=== PATIENT | female | born 1980 | race Caucasian/White ===

== ENCOUNTER 2016-04-08 14:22 | Emergency (ER) | payer BC ==
[~2016-04-08] VITALS: Ht 170.2 cm; Wt 73.3 kg
[2016-04-08 15:28] LABS: HEMATOCRIT 43.1 % (36.0-46.0); MCH 30.6 PG (29.0-34.0); MCHC 33.4 G/DL (30.0-36.0); MCV 91.7 FL (83-99); MEAN PLAT.VOLUME 11.5 uM^3 (9.5-12.4); PLATELET COUNT 178 K/uL (156-360); RBC DIS.WIDTH-CV 12.7 % (11.8-14.6); RBC DIS.WIDTH-SD 41.2 % (39-53); WHITE BLOOD COUNT 11.2 K/uL (4.1-10.2)
[2016-04-08 15:40] LABS: CHLORIDE 107 mEq/L (99-109); SODIUM 139 mEq/L (136-147)
[2016-04-08 15:42] LABS: GLUCOSE 84 mg/dL (70-99)
[2016-04-08 15:43] LABS: ANION GAP 10 MEQ/L (2-14)
[2016-04-08 15:46] LABS: ALKALINE PHOSPHATASE 70 IU/L (3-129)
[2016-04-08 15:47] LABS: UREA NITROGEN (BUN) 9 mg/dL (9-23)
[2016-04-08 15:52] LABS: GFR ESTIMATE (CALCULATED) > 59 mL/min/
[2016-04-08 15:54] LABS: QUANTITATIVE HCG < 4.0 MIU/ML
[2016-04-08] MEDS ORDERED: LITHIUM CARBON300 M1 PO (17:00)
[2016-04-08 17:12] LABS: ADD MIUA? YES; BILIRUBIN NEGATIVE; BLOOD NEGATIVE; COLOR YELLOW ((YELLOW)); GLUCOSE (STRIP) NEGATIVE; KETONES 20; LEUKOCYTES NEGATIVE; NITRITE NEGATIVE; PROTEIN (STRIP) 30; SPECIFIC GRAVITY 1.017 (1.000-1.030)
[2016-04-08 17:22] LABS: BACTERIA NONE SEEN /HPF; EPITHELIAL CELLS 2+ /HPF; MUCUS 1+ /LPF; RED BLOOD CELLS 0-5 /HPF (0-5); UCUL ADDED? NO; WHITE BLOOD CELLS 0-5 /HPF (0-5)
[2016-04-08] MEDS ORDERED: ZOFRAN ODT4 MG PO (17:53)
[2016-04-08] MEDS ORDERED: BENTYL20 MG PO (17:53)
[2016-04-08 18:02] VITALS: BP 123/79
== END 2016-04-08 18:06 | disposition home or self-care (01) ==
LOC: EME 14:22
DX: R10.30 Lower abdominal pain, unspecified (principal); R19.7 Diarrhea, unspecified; B34.9 Viral infection, unspecified; R11.2 Nausea with vomiting, unspecified; F17.200 Nicotine dependence, unspecified, uncomplicated; Z71.6 Tobacco abuse counseling
CPT/HCPCS: 80053; 81003; 84702; 85027; 99281; 99284

== ENCOUNTER 2017-02-28 09:11 | Emergency (ER) | payer BC ==
[~2017-02-28] VITALS: Ht 170.2 cm; Wt 71.6 kg
[~2017-02-28 09:11] MED LIST: BENTYL20 MG PO; LITHIUM CARBON300 M1 PO; ZOFRAN ODT4 MG PO
[2017-02-28 09:56] LABS: APPEARANCE CLOUDY ((CLEAR)); BILIRUBIN NEGATIVE; BLOOD SMALL; COLOR YELLOW ((YELLOW)); GLUCOSE (STRIP) NEGATIVE; KETONES NEGATIVE; LEUKOCYTES NEGATIVE; NITRITE NEGATIVE; PROTEIN (STRIP) NEGATIVE; SPECIFIC GRAVITY 1.008 (1.000-1.030); UROBILINOGEN 0.2 MG/DL (0.2-1.0)
[2017-02-28 10:16] LABS: BACTERIA 1+ /HPF; EPITHELIAL CELLS 2+ /HPF; MUCUS 1+ /LPF; RED BLOOD CELLS 0-5 /HPF (0-5); UCUL ADDED? NO; WHITE BLOOD CELLS 0-5 /HPF (0-5)
[2017-02-28 10:20] LABS: HEMATOCRIT 43.4 % (36.0-46.0); HEMOGLOBIN 14.4 G/DL (11.9-15.5); MCH 31.5 PG (29.0-34.0); MCHC 33.2 G/DL (30.0-36.0); PLATELET COUNT 211 K/uL (156-360); RBC DIS.WIDTH-SD 45.7 % (39-53); RED BLOOD COUNT 4.57 M/uL (3.80-5.20); WHITE BLOOD COUNT 11.1 K/uL (4.1-10.2)
[2017-02-28 10:36] LABS: ALBUMIN 4.5 g/dL (3.2-4.8); CHLORIDE 106 mEq/L (99-109); POTASSIUM 4.2 mEq/L (3.7-5.4); SODIUM 139 mEq/L (136-147)
[2017-02-28 10:38] LABS: GLUCOSE 99 mg/dL (70-99); TOTAL PROTEIN 6.9 g/dL (6.4-8.3)
[2017-02-28 10:40] LABS: TOTAL BILIRUBIN 2.2 mg/dL (0.0-1.0)
[2017-02-28 10:42] LABS: ALKALINE PHOSPHATASE 67 IU/L (3-129); CREATININE 0.7 mg/dL (0.6-1.3); GFR ESTIMATE (CALCULATED) > 59 mL/min/
[2017-02-28 10:43] LABS: UREA NITROGEN (BUN) 10 mg/dL (9-23)
[2017-02-28 10:44] LABS: AST (GOT) 21 IU/L (2-34)
[2017-02-28 10:45] LABS: ALT (GPT) 17 IU/L (3-49)
[2017-02-28 10:52] LABS: QUANTITATIVE HCG < 4.0 MIU/ML
[2017-02-28] MEDS ORDERED: PERCOCET 2.51 TABLET PO (16:52)
[2017-02-28] MEDS ORDERED: ZOFRAN ODT4 MG PO (16:52)
[2017-02-28 17:11] VITALS: BP 138/79
== END 2017-02-28 18:00 | disposition home or self-care (01) ==
LOC: EME 09:11
DX: R10.31 Right lower quadrant pain (principal); R10.2 Pelvic and perineal pain; R11.0 Nausea; R30.0 Dysuria; F31.9 Bipolar disorder, unspecified; F17.200 Nicotine dependence, unspecified, uncomplicated; Z88.0 Allergy status to penicillin
CPT/HCPCS: 74176; 76856; 80053; 81003; 84702; 85027; 99281; 99284; J1885; J2270; J2405

== ENCOUNTER 2017-03-24 09:17 | Inpatient (IN) | payer BC ==
[~2017-03-24] VITALS: Ht 170.2 cm; Wt 68.9 kg
[~2017-03-24 09:17] MED LIST changes: +ODOR FREE GARL1 EACH PO; +PERCOCET 2.51 TABLET PO; +PROBIOTIC1 EAC3 PO; +VITAMIN D31000 UNI2 PO
[2017-03-24 09:46] LABS: HEMATOCRIT 42.7 % (36.0-46.0); HEMOGLOBIN 14.4 G/DL (11.9-15.5); MCV 95.1 FL (83-99)
[2017-03-24 10:02] VITALS: BP 121/65
[2017-03-24 17:38] VITALS: BP 121/62
[2017-03-24 19:36] VITALS: BP 105/58
[2017-03-24 23:29] VITALS: BP 122/59
[2017-03-25 03:21] VITALS: BP 102/53
[2017-03-25 07:02] VITALS: BP 104/53
[2017-03-25 07:04] LABS: BASOPHIL (%) 0.2 % (0-1); EOSINOPHIL (%) 0.1 % (0-5); HEMATOCRIT 29.5 % (36.0-46.0); IMMATURE GRANULOCYTE (%) 0.8 % (0.0-0.7); LYMPHOCYTE (%) 15.8 % (15-42); LYMPHOCYTE COUNT 2.8 K/uL (1.0-2.8); MCH 30.5 PG (29.0-34.0); MCHC 31.9 G/DL (30.0-36.0); MCV 95.8 FL (83-99); MONOCYTE (%) 9.7 % (3-12); MONOCYTE COUNT 1.7 K/uL (0-0.8); NEUTROPHIL (%) 73.4 % (45-76); NEUTROPHIL COUNT 12.8 K/uL (1.8-6.4); PLATELET COUNT 222 K/uL (156-360); RBC DIS.WIDTH-CV 12.8 % (11.8-14.6); RBC DIS.WIDTH-SD 44.8 % (39-53); WHITE BLOOD COUNT 17.5 K/uL (4.1-10.2)
[2017-03-25 07:06] LABS: HEMOGLOBIN 9.4 G/DL (11.9-15.5); RED BLOOD COUNT 3.08 M/uL (3.80-5.20)
[2017-03-25 12:33] VITALS: BP 120/71
[2017-03-25] MEDS ORDERED: ENDOCET 5-3251 EACH PO (13:53)
[2017-03-25] MEDS ORDERED: MOTRIN800 MG PO (13:53)
[2017-03-25 15:15] VITALS: BP 109/54
[2017-03-25 16:09] VITALS: BP 117/58
[2017-03-25 18:00] LABS: INTER. NORMALIZED RATIO 1.1
[2017-03-25 18:02] LABS: BASOPHIL (%) 0.2 % (0-1); EOSINOPHIL (%) 0.6 % (0-5); EOSINOPHIL COUNT 0.1 K/uL (0-0.3); HEMATOCRIT 23.2 % (36.0-46.0); HEMOGLOBIN 7.7 G/DL (11.9-15.5); IMMATURE GRANULOCYTE (%) 0.6 % (0.0-0.7); LYMPHOCYTE (%) 22.8 % (15-42); LYMPHOCYTE COUNT 2.9 K/uL (1.0-2.8); MCH 31.3 PG (29.0-34.0); MCHC 33.2 G/DL (30.0-36.0); MCV 94.3 FL (83-99); MONOCYTE COUNT 1.5 K/uL (0-0.8); NEUTROPHIL (%) 63.8 % (45-76); NRBC (%) 0.3 /100 WBC (0-0); PLATELET COUNT 166 K/uL (156-360); RBC DIS.WIDTH-CV 12.6 % (11.8-14.6); RBC DIS.WIDTH-SD 43.6 % (39-53); WHITE BLOOD COUNT 12.5 K/uL (4.1-10.2)
[2017-03-25 18:03] LABS: PTT 24.6 SEC (25-37); RED BLOOD COUNT 2.46 M/uL (3.80-5.20)
[2017-03-25 20:06] VITALS: BP 117/57
[2017-03-25 20:16] LABS: HEMOGLOBIN 7.4 G/DL (11.9-15.5); MCH 31.8 PG (29.0-34.0); MCHC 33.6 G/DL (30.0-36.0); MCV 94.4 FL (83-99); PLATELET COUNT 145 K/uL (156-360); RBC DIS.WIDTH-CV 12.8 % (11.8-14.6); RED BLOOD COUNT 2.33 M/uL (3.80-5.20); WHITE BLOOD COUNT 11.4 K/uL (4.1-10.2)
[2017-03-26] VITALS (8 sets, daily range): BP systolic 109–123; BP diastolic 55–62
[2017-03-26 06:49] LABS: HEMATOCRIT 20.9 % (36.0-46.0); MCH 32.1 PG (29.0-34.0); MCHC 33.5 G/DL (30.0-36.0); MCV 95.9 FL (83-99); PLATELET COUNT 144 K/uL (156-360); RBC DIS.WIDTH-SD 45.8 % (39-53); RED BLOOD COUNT 2.18 M/uL (3.80-5.20); WHITE BLOOD COUNT 10.4 K/uL (4.1-10.2)
[2017-03-26 08:19] LABS: FIBRINOGEN 354 mg/dL (150-450); INTER. NORMALIZED RATIO 1.1
[2017-03-26 08:21] LABS: PTT 25.4 SEC (25-37)
[2017-03-26 17:57] LABS: CHLORIDE 109 MEQ/L (99-109); POTASSIUM 4.1 MEQ/L (3.7-5.4); SODIUM 140 MEQ/L (136-147)
[2017-03-26 18:02] LABS: CREATININE 0.5 MG/DL (0.6-1.3); GFR ESTIMATE (CALCULATED) > 59 mL/min/; GLUCOSE 111 mg/dL (70-99); UREA NITROGEN (BUN) 7 mg/dL (9-23)
[2017-03-26 20:41] LABS: BASOPHIL (%) 0.1 % (0-1); EOSINOPHIL (%) 0 % (0-5); HEMATOCRIT 25.5 % (36.0-46.0); HEMOGLOBIN 8.5 G/DL (11.9-15.5); IMMATURE GRANULOCYTE (%) 0.6 % (0.0-0.7); LYMPHOCYTE (%) 4.8 % (15-42); LYMPHOCYTE COUNT 0.5 K/uL (1.0-2.8); MCH 30.6 PG (29.0-34.0); MCHC 33.3 G/DL (30.0-36.0); MONOCYTE (%) 5.5 % (3-12); MONOCYTE COUNT 0.6 K/uL (0-0.8); NEUTROPHIL COUNT 9.2 K/uL (1.8-6.4); PLATELET COUNT 121 K/uL (156-360); RBC DIS.WIDTH-CV 15.4 % (11.8-14.6); RBC DIS.WIDTH-SD 52.2 % (39-53); WHITE BLOOD COUNT 10.4 K/uL (4.1-10.2)
[2017-03-26 20:42] LABS: MCV 91.7 FL (83-99); RED BLOOD COUNT 2.78 M/uL (3.80-5.20)
[2017-03-27 03:37] VITALS: BP 98/55
[2017-03-27 06:14] LABS: HEMATOCRIT 23.9 % (36.0-46.0); HEMOGLOBIN 7.7 G/DL (11.9-15.5); MCH 29.8 PG (29.0-34.0); MCHC 32.2 G/DL (30.0-36.0); MCV 92.6 FL (83-99); PLATELET COUNT 122 K/uL (156-360); RBC DIS.WIDTH-CV 15.6 % (11.8-14.6); RBC DIS.WIDTH-SD 52.9 % (39-53); RED BLOOD COUNT 2.58 M/uL (3.80-5.20); WHITE BLOOD COUNT 10.7 K/uL (4.1-10.2)
[2017-03-27 06:34] LABS: CHLORIDE 108 MEQ/L (99-109); CREATININE 0.4 MG/DL (0.6-1.3); GFR ESTIMATE (CALCULATED) > 59 mL/min/; GLUCOSE 119 mg/dL (70-99); POTASSIUM 4.2 MEQ/L (3.7-5.4); SODIUM 139 MEQ/L (136-147); UREA NITROGEN (BUN) 6 mg/dL (9-23)
[2017-03-27 06:43] VITALS: BP 107/53
[2017-03-27 11:59] LABS: HEMATOCRIT 23.9 % (36.0-46.0); MCH 31.1 PG (29.0-34.0); MCHC 33.5 G/DL (30.0-36.0); PLATELET COUNT 130 K/uL (156-360); RBC DIS.WIDTH-CV 15.4 % (11.8-14.6); RBC DIS.WIDTH-SD 51.8 % (39-53); RED BLOOD COUNT 2.57 M/uL (3.80-5.20); WHITE BLOOD COUNT 13.5 K/uL (4.1-10.2)
[2017-03-27 12:06] VITALS: BP 108/59
[2017-03-27 16:07] VITALS: BP 115/74
[2017-03-27 19:06] VITALS: BP 122/68
[2017-03-27 23:01] VITALS: BP 111/60
[2017-03-28 03:59] VITALS: BP 102/56
[2017-03-28 07:02] LABS: HEMATOCRIT 25.7 % (36.0-46.0); HEMOGLOBIN 8.3 G/DL (11.9-15.5); MCH 30.1 PG (29.0-34.0); MCHC 32.3 G/DL (30.0-36.0); MCV 93.1 FL (83-99); PLATELET COUNT 155 K/uL (156-360); RBC DIS.WIDTH-CV 14.9 % (11.8-14.6); RBC DIS.WIDTH-SD 50.4 % (39-53); RED BLOOD COUNT 2.76 M/uL (3.80-5.20); WHITE BLOOD COUNT 11.5 K/uL (4.1-10.2)
[2017-03-28 08:02] VITALS: BP 132/77
[2017-03-28] MEDS ORDERED: PERCOCET 5/31 TABLET PO (09:06)
== END 2017-03-28 16:41 | disposition home or self-care (01) | DRG 742 ==
LOC: SDC 09:17 → ENRESERV 15:28 → 2SOUTH 15:29 → 2EASTP 15:29 → SDC 15:43 → ENRESERV 15:51 → SDC 16:06 → 2EASTP 17:31 → ENPENDDIS 03-28 16:00 → 2EASTP 03-28 16:41
PROVIDERS: Obstetrics & Gynecology
DX: N83.291 Other ovarian cyst, right side (principal); K66.0 Peritoneal adhesions (postprocedural) (postinfection); L76.22 Postprocedural hemorrhage of skin and subcutaneous tissue following other procedure; M96.841 Postprocedural hematoma of a musculoskeletal structure following other procedure; D62 Acute posthemorrhagic anemia; F31.9 Bipolar disorder, unspecified; K21.9 Gastro-esophageal reflux disease without esophagitis; F17.200 Nicotine dependence, unspecified, uncomplicated; Q24.0 Dextrocardia; Z88.1 Allergy status to other antibiotic agents; Z53.31 Laparoscopic surgical procedure converted to open procedure
CPT/HCPCS: 74177; 80048; 85014; 85018; 85025; 85025 91; 85027; 85384; 85610; 85730; 86850; 86900; 86901; 86920; 87040; 88305; J0690; J1100; J1170; J2250; J2270; J2405; J2710; J2765; J3010; J7120; P9016